=== PATIENT | male | born 1980 | race Caucasian/White ===

== ENCOUNTER 2016-10-13 00:47 | Emergency (ER) | payer OTHER ==
--- NOTE | 2016-10-13 02:59 | ED NURSING NOTES ---
Clinical Report - Nurses [facility] [address] [place] [address] 10/13/2016 0:49 [id number] Triage time 01:Oct 13 2016. Acuity: LEVEL 4. Chief Complaint: BACK PAIN. 01:10/13/16. SEPSIS SCREEN: Sepsis Screen. Negative (no infection suspected/documented). KEYSHAWN COMA SCORE: Keyshawn Coma Scale: 15- eyes open spontaneously (4); best verbal response- oriented x 4 (5); best motor response- obeys commands (6). --01:33 Carolyn Hutchins R.N. 01:10/13/16. BP: 139/92. HR: 83. RR: 18. O2 saturation: 99%. Temp: 97.6 F. --01:33 Carolyn Hutchins R.N. Weight: 92.5 kg stated. Height/Length: 69 inches Per Patient. BMI: 30.1. --01:27 Carolyn Hutchins R.N. Medications Iron Oral. PriLOSEC Oral 10 mg, daily. Sertraline HCl Oral 100 mg, daily. --01:30 Carolyn Hutchins R.N. Methocarbamol Oral. --01:30 Carolyn Hutchins R.N. Medication/allergy information source: the patient. --01:33 Carolyn Hutchins R.N. Allergies Oxycodone. --01:31 Carolyn Hutchins R.N. History Arrived by private vehicle. Historian: patient. Accompanied by family. Onset. (4 days ago). ( states went to chiropractor last week and pain in back started after that.). No numbness, weakness, tingling, trouble walking or fever. No extremity pain. SOCIAL HX: Heavy tobacco smoker (cigarette)- 1 pack per day. No alcohol use or drug use. No infectious disease exposure. ABUSE ASSESSMENT: No report of abuse. SELF HARM ASSESSMENT: A self harm assessment was performed. The patient answered "no" to the question "Have you recently felt down, depressed, or hopeless?", "Have you noticed less interest or pleasure in doing things?", "Do you have thoughts of harming or killing yourself?", "Are you here because you tried to hurt yourself?", "Have you ever tried to hurt yourself before today?", "Have you recently had thoughts about harming or killing others?" and "Do you have any dangerous items in your possession?". NUTRITIONAL RISK ASSESSMENT: The nutritional risk assessment revealed no deficiencies. FUNCTIONAL ASSESSMENT: Functional assessment: no impairments noted. LEARNING NEEDS ASSESSMENT: The learning needs assessment revealed no barriers. SKIN INTEGRITY ASSESSMENT: Skin integrity risk assessment completed. No skin integrity risk identified. --01:33 Carolyn Hutchins R.N. PROBLEMS: Dental Pain. Dental Abscess. Abscess. Anemia. Calcium deficiency. Chest Wall Pain. Back Pain. Back Injury. Lumbar Strain. Anxiety Reaction. Depression. Hypertension. Dental Caries. --01:31 Carolyn Hutchins R.N. ADDITIONAL SURGERIES: Teeth pulled. --01:31 Carolyn Htuchins R.N. Interventions ID band on patient. --01:33 Carolyn Hutchins R.N. DISPOSITION / DISCHARGE Departure time: 02:58. The patient left the Emergency Department without being seen by a physician. The patient appears to be alert, oriented x4, coherent and in no acute distress. Patient paged twice. The patient did not notify the ED staff prior to leaving the department. --02:58 Junito Blanca R.N. Locked/Released at 10/17/2016 7:59 by Dorothy Bennett R.N.
--- NOTE | 2016-10-17 07:59 | ED MAR SUMMARY ---
..... Medication Administration Record [facility] [address] [place], [place] [id number] Patient: SERGEY STOCKTON Visit ID: [id number] 36y, M Weight: 92.5 kg Height/Length: 69 in BMI: 30.1 ALLERGIES: Oxycodone
--- NOTE | 2016-10-17 07:59 | ED MED RECONCILIATION SUMMARY ---
Patient: SERGEY STOCKTON Medication Reconciliation Report [facility] VisitID: [id number] [address] [place] [address] 36y, M Registration Date/Time: 10/13/2016 Weight: 92.5 kg Height/Length: 69 in. BMI: 30.1 ALLERGIES: Oxycodone The patient's Home Medications are listed below: THE FOLLOWING MEDICATIONS NEED TO BE RECONCILED: Iron Oral Methocarbamol Oral PriLOSEC Oral 10 mg, daily Sertraline HCl Oral 100 mg, daily The source(s) of the original Home Medication information: patient The following Medications were given to the patient in the Emergency Department: None. The following Medications were prescribed to the patient: None.
--- NOTE | 2016-10-17 07:59 | ED MED RECONCILIATION SUMMARY ---
Patient: SERGEY STOCKTON Medication Reconciliation Report [facility] VisitID: [id number] [address] [place] [address] 36y, M Registration Date/Time: 10/13/2016 Weight: 92.5 kg Height/Length: 69 in. BMI: 30.1 ALLERGIES: Oxycodone The patient's Home Medications are listed below: THE FOLLOWING MEDICATIONS NEED TO BE RECONCILED: Iron Oral Methocarbamol Oral PriLOSEC Oral 10 mg, daily Sertraline HCl Oral 100 mg, daily The source(s) of the original Home Medication information: patient The following Medications were given to the patient in the Emergency Department: None. The following Medications were prescribed to the patient: None.
--- NOTE | 2016-10-17 07:59 | ED MAR SUMMARY ---
..... Medication Administration Record [facility] [address] [place], [place] [id number] Patient: SERGEY STOCKTON Visit ID: [id number] 36y, M Weight: 92.5 kg Height/Length: 69 in BMI: 30.1 ALLERGIES: Oxycodone
== END 2016-10-13 02:58 | disposition left against medical advice (07) ==
LOC: ED SRH 00:47
DX: Z53.21 Procedure and treatment not carried out due to patient leaving prior to being seen by health care provider (principal)